=== PATIENT | male | born 1970 | race Caucasian/White ===

== ENCOUNTER → 2023-10-02 | Outpatient (CLI) | payer OTHER ==
[~2023-10-02] MED LIST: ALBU8.5H3 IH; CEPH500T PO; HYDR-4060 PO; TAMS-1 PO
[2023-10-02] MEDS: REGADENOSON 0.4 MG/5 ML PF SYG IVP SCH (13:19)
== END | disposition home or self-care (01) ==
LOC: RAH 09:01
PROVIDERS: ATTEND Internal Medicine Cardiovascular Disease
DX: R06.00 Dyspnea, unspecified (principal); R07.89 Other chest pain
CPT/HCPCS: 78452; 96374; 93017; J2785; A9500 ×2

== ENCOUNTER 2024-02-27 06:31 | Day surgery (SDC) | payer OTHER ==
[2024-02-25 10:49] LABS: BASOPHILS # (AUTO) 0.09 K/uL (0.00-0.20); BASOPHILS % (AUTO) 1.1 % (0.0-5.0); EOSINOPHILS # (AUTO) 0.42 K/uL (0.00-0.70); EOSINOPHILS % (AUTO) 4.9 % (0.0-8.0); HEMATOCRIT 51.1 % (42-54); IMMATURE GRANULOCYTE ABSOLUTE 0.04 K/uL (0-1); MEAN CORPUSCULAR HEMOGLOBIN 27.4 pg (27.0-33.0); MEAN CORPUSCULAR HGB CONC 32.1 g/dL (32.0-36.0); MEAN CORPUSCULAR VOLUME 85.3 fL (79-99); MONOCYTES # (AUTO) 0.9 K/uL (0.1-1.0); NEUTROPHILS # (AUTO) 5.1 K/uL (1.8-7.7); NEUTROPHILS % (AUTO) 59.5 % (40.0-77.0); PLATELET COUNT (AUTO) 190 K/uL (130-400); RED BLOOD CELL COUNT(AUTO) 5.99 MIL/uL (4.50-6.20); RED CELL DISTRIBUTION WIDTH 15.5 % (11.0-15.5); WHITE BLOOD COUNT (AUTO) 8.5 K/uL (4.8-10.8)
[2024-02-25 11:05] LABS: PROTHROMBIN TIME 10.8 SEC (9.6-11.6)
[2024-02-25 11:06] LABS: PARTIAL THROMBOPLASTIN TIME 32.5 SEC (26.3-35.5)
--- NOTE | 2024-02-25 11:10 | EKG ---
[facility] Test Date: 2024-02-25 Test Time: 11:33:21 Pat Name: CHARMAINE MONTANA Department: [facility] Room: [facility] Gender: M [employer] Jo[employer]: [id number] : 1970 Requested By: NIO ÁLVAREZ Order Number: [id number] Reading MD: Aury Johnson Measurements Intervals [place] Rate: 91 P: 77 MS: 160 QRS: 8 QRSD: 91 T: 65 QT: 370 QTc: 453 Interpretive Statements Sinus rhythm Ventricular premature complex Low voltage, extremity leads No previous ECG available for comparison Electronically Signed On 02-27-2024 17:34:30 FIELD SERVICE REP by Aury Johnson Please click the below link to view image of tracing.
[2024-02-25 11:12] LABS: CREATININE 1.2 mg/dL (0.5-1.3); POTASSIUM 4.6 mmol/L (3.5-5.1)
[2024-02-25 11:14] LABS: B-TYPE NATRIURETIC PEPTIDE < 5 pg/mL (0-100)
[2024-02-25 11:23] VITALS: BP 131/81; PULSE 91; RESP 18; TEMP 98
[2024-02-25 11:25] LABS: ADD UA MICROSCOPIC YES; APPEARANCE,URINE CLEAR (CLEAR); BILIRUBIN,URINE NEGATIVE (NEGATIVE); COLOR,URINE LIGHT-YELLOW (YELLOW); GLUCOSE, URINE (UA) >=1000 mg/dL (NEGATIVE); KETONES,URINE NEGATIVE (NEGATIVE); LEUKOCYTE ESTERASE ,URINE NEGATIVE Leu/uL (NEGATIVE); NITRATE,URINE NEGATIVE (NEGATIVE); OCCULT BLOOD,URINE NEGATIVE (NEGATIVE); PROTEIN,URINE NEGATIVE (NEGATIVE); UROBILINOGEN,URINE 0.2 mg/dL (0.2-1.0)
[2024-02-25 11:27] LABS: BACTERIA,URINE RARE /HPF (None Seen); MUCUS,URINE RARE LPF (None Seen); OTHER CASTS, URINE 1 /LPF (None Seen); RBC,URINE 0-1 /HPF (0-1); SQUAMOUS EPITHELIAL CELL,UR RARE /HPF (0-2)
--- NOTE | 2024-02-25 12:04 | HMCIMG ---
CHEST 1VW HISTORY: Preop COMPARISON: None FINDINGS: A frontal projection of the chest was obtained. Prominent interstitial markings are seen with possible superimposed infiltrates. The heart is borderline enlarged. Degenerative changes are seen. No evidence of aortic calcification is seen. IMPRESSION: 1. Prominent interstitial markings are seen with possible superimposed infiltrates.
--- NOTE | 2024-02-26 08:42 | NUR ---
REPORT REPORTED CXR TO DR ÁLVAREZ. OK TO PROCEED
[2024-02-27] VITALS (10 sets, daily range): BP systolic 107–137; BP diastolic 78–91; PULSE 83–95; RESP 12–18; TEMP 97.2–97.6
[~2024-02-27] VITALS: Ht 179.1 cm; Wt 122.2 kg
[~2024-02-27 06:31] MED LIST changes: +BUPR-561 PO; -CEPH500T PO; +CHOL2000 PO; +DOCU100T PO; +EMPA25TA PO; +FAMO40TA7 PO; +FLUT16H NS; +GABA300C PO; +GLIP10TA16 PO; -HYDR-4060 PO; +HYDR-4068 PO; +LOSA100T59 PO; +METF-446 PO; +PANT40TA54 PO; +PIOG30TA70 PO; +SEMA1PEN3 SQ; +SIMV80TA91 PO; +TIOT4MIS8 IH; +VITAMIN B 12 PO
[2024-02-27] MEDS: 0.9%NACL 1000ML 1,000 ML IV ONE (07:13)
[2024-02-27] MEDS ORDERED: HEParin-NS 1,000 UNIT/500 ML 1,000 ML IV ONE (09:09)
[2024-02-27] MEDS ORDERED: MIDAZOLAM HCL 1 MG/ML 2ML VIAL ONE (09:09)
[2024-02-27] MEDS ORDERED: LIDOCAINE HCL 400MG/20ML VIAL ONE (09:09)
[2024-02-27] MEDS ORDERED: HEParin 10,000 UNIT/10ML (1,000 UNIT/ML) VIAL ONE (09:09)
[2024-02-27] MEDS ORDERED: FENTanyl CITRate PF 50 MCG/1 ML 2ML VIAL ONE ×2 (09:09→10:44)
[2024-02-27] MEDS ORDERED: NITROGLYCERIN 50MG VIAL ONE (09:10)
[2024-02-27] MEDS ORDERED: IOHEXOL-350 50ML VIAL IV ONE ×2 (09:19→10:33)
[2024-02-27] MEDS ORDERED: IOHEXOL 350 MG/ML 100ML INFUS..BTL IV ONE (09:19)
[2024-02-27] MEDS ORDERED: HEParin-NS 1,000 UNIT/500 ML 500 ML IV ONE (10:41)
--- NOTE | 2024-02-27 11:36 | PRN ---
DATE OF PROCEDURE: 02/27/2024 PROCEDURE PERFORMED: RIGHT AND LEFT HEART CATHETERIZATION, LEFT VENTRICULOGRAM, LEFT AND RIGHT SELECTIVE CORONARY ANGIOGRAM, IFR OF MID RCA 70% STENOSIS, RIGHT COMMON FEMORAL ANGIOGRAM, PERCLOSE SUTURE CLOSURE OF THE RIGHT COMMON FEMORAL ARTERY, WITH CONSCIOUS SEDATION SPECIAL CLASS WELDER: INO ÁLVAREZ MD, [facility] INDICATION: PRE LUNG TRANSPLANT CARDIAC EVALUATION. FIXED ANTERIOR SEPTAL DEFECT ON LEXISCAN CARDIOLITE STRESS TEST 10/02/2023 PROCEDURE NOTE: After informed consent was obtained the patient was prepped and draped in the usual sterile fashion. A 6 Portuguese arterial sheath was inserted in the right femoral artery using a micropuncture technique with ultrasound guidance with a front wall, first pass puncture. This was performed after fluoroscopic identification of bony landmarks to facilitate a more accurate puncture of the right common femoral artery. The arterial sheath was aspirated and flushed. A 7 Portuguese venous sheath with hemostatic valve was inserted into the right common femoral vein using micropuncture technique with ultrasound guidance and was also aspirated and flushed. A 7 Portuguese S tipped [place]Jodi catheter was then advanced using balloon floatation to the right heart with pressure measurements and saturations in the right heart as well as simultaneous pressure measurement of LVEDP and wedge pressure. Cardiac output determinations were obtained. A 6 Portuguese pigtail catheter was then advanced over a J-tipped guidewire to the ascending aorta and was prolapsed into the left ventricle. The catheter was aspirated and flushed and pressure measurements were obtained. A left ventriculogram was then performed in a 30 [place] OCA projection. A pullback procedure was then performed, and this catheter was removed over a J-tipped guidewire. A 6F JL-4 was then advanced to the ascending aorta over a J-tipped guidewire, was aspirated and flushed, and was used for selective left coronary angiograms in multiple obliquities. A JR-4 was advanced in a similar fashion to the ascending aorta over a J-tipped guidewire and was used for selective right coronary angiograms in multiple obliquities with findings as outlined below. There was a borderline stenosis of 70% in the mid RCA and IFR measurements were performed in standard fashion with readings of 0.98, 0.97, and 0.97 without significant drift. A right common femoral angiogram was performed to assess suitability for Perclose suture closure and the Perclose device was deployed in standard fashion. Perclose suture closure was successful without bleeding or hematoma. The patient tolerated the procedure well and was returned to the holding area in stable condition. FINDINGS: RIGHT HEART CATHETERIZATION: RA pressure was 20 mm of mercury on the A-wave, 16 mm of mercury on the V-wave with a mean RA pressure of 17 mm of mercury RV pressure was 45/14 mm of mercury PA pressure was 45/29 mm of mercury with a mean PA pressure of 31 mm of mercury Pulmonary capillary wedge pressure was 25 mm of mercury on the A-wave, 24 mm of mercury on the V-wave, with a mean pulmonary capillary wedge pressure of 24 mm of mercury. Cardiac output was 6.9 with a cardiac index of 2.9 liters/minute per meter squared. Oximetry: RA sat was 71.1% RV sat was 64.4% with a repeat of 65.5% Left PA sat was 64.2% with a repeat of 67.1% Main PA sat was 68% SVC sat was 68.5% IVC sat 71.8% Central aortic saturation 92.6% LEFT HEART HEMODYNAMICS: The LVEDP was 22 mm of mercury with a repeat post LV g of 25 mm of mercury. There was no aortic valve gradient on pullback procedure. LEFT VENTRICULOGRAM: An LV-gram in a 30 degree [place] OCA projection demonstrated normal segmental wall motion and systolic function with an LVEF of 50-55% by estimate. CORONARY ANGIOGRAM: LEFT MAIN: The left main coronary artery was large and normal. There was no dampening or ventricularization of the pressure waveform. LEFT ANTERIOR DESCENDING: The left anterior descending and diagonal branches were normal. LEFT CIRCUMFLEX: The left circumflex was nondominant and normal as were the obtuse marginal branches. RAMUS INTERMEDIATE BRANCH: There was no ramus intermediate branch. RIGHT CORONARY ARTERY: The right coronary artery was dominant and had two tandem 40% stenoses in the proximal RCA. The mid RCA had a 70% stenosis with IFR of 0.98, 0.97, and 0.97. PDA and posterolateral ventricular branches were normal. IMPRESSION: Chronic hypoxemia with central aortic saturation of 93%. Sleep apnea with reported compliance with CPAP. Mild pulmonary hypertension with PA pressure 45/29 mm of mercury and mean PA pressure of 31 mm of mercury No oximetric step-up in the right heart (no evidence of intracardiac shunt). Normal cardiac output of 6.9 liters/minute and index of 2.9 liters/minute per meter squared Chronic diastolic CHF with pulmonary capillary wedge pressure of 24 mm of mercury and LVEDP of 22 mm of mercury Normal LV systolic function with LVEF of 50-55% by left ventriculogram. Single-vessel coronary artery disease with normal LAD and diagonal branches, normal left circumflex and obtuse marginal branches, and 70% mid mildly diffuse stenosis in the mid RCA with IFR of 0.97 to 0.98. RECOMMENDATION: Aggressive LDL reduction to less than 55 Heart healthy diet and lifestyle changes including weight loss and strict adherence to CPAP Cleared for lung transplantation. COMPLICATIONS OF PROCEDURE: None, the patient tolerated the procedure well and was returned to his room in stable condition. HEMOSTASIS: Perclose suture closure was successful without bleeding or hematoma. ESTIMATED BLOOD LOSS: Less than 10 mL CONTRAST TOTAL: 145 mL INO ÁLVAREZ MD Feb 27, 2024 11:36
[2024-02-27] MEDS: 0.9%NACL 1000ML 1,000 ML IV SCH (11:50)
[2024-02-27] MEDS ORDERED: GLUCAGON 1MG KIT 1 MG ML IM PRN (12:00)
[2024-02-27] MEDS ORDERED: DEXTROSE 50%-WATER 50 ML DISP.SYRIN IV PRN (12:00)
[2024-02-27] MEDS ORDERED: INSULIN humuLIN R 100 UNIT/ML 3ML SQ SCH (16:30)
== END 2024-02-27 15:03 | disposition home or self-care (01) ==
LOC: DAH 06:31 → EDSTATUS 10:00 → DAH 15:03
PROVIDERS: ATTEND Internal Medicine Cardiovascular Disease
DX: R94.39 Abnormal result of other cardiovascular function study (principal); I25.10 Atherosclerotic heart disease of native coronary artery without angina pectoris; I27.20 Pulmonary hypertension, unspecified; R09.02 Hypoxemia; I11.0 Hypertensive heart disease with heart failure; I50.32 Chronic diastolic (congestive) heart failure; E78.2 Mixed hyperlipidemia; J44.9 Chronic obstructive pulmonary disease, unspecified; E11.9 Type 2 diabetes mellitus without complications; I49.3 Ventricular premature depolarization; R06.00 Dyspnea, unspecified; G47.33 Obstructive sleep apnea (adult) (pediatric); E66.9 Obesity, unspecified; Z87.891 Personal history of nicotine dependence; E86.0 Dehydration; Z98.890 Other specified postprocedural states; Z90.89 Acquired absence of other organs; Z99.89 Dependence on other enabling machines and devices; Z90.49 Acquired absence of other specified parts of digestive tract; Z68.39 Body mass index [BMI] 39.0-39.9, adult; Z79.84 Long term (current) use of oral hypoglycemic drugs; Z79.82 Long term (current) use of aspirin; Z79.01 Long term (current) use of anticoagulants; Z79.899 Other long term (current) drug therapy
CPT/HCPCS: 80048; 83880; 85025; 85610; 85730; 81001; 36415; 71045; 93005; 93460; 93571; 82948 ×2; 96360; 96361; C1887; C1894 ×3; C1760; C1769; J3010 ×2; J3490 ×2; J7030; J2250; J1644 ×2; Q9967 ×3; A4215; A4222; A4221; A4663; A4216; A4606; Q9965; A4223 ×3; 99156; 99157

== ENCOUNTER → 2025-03-18 | Outpatient (CLI) | payer OTHER ==
[2025-03-18 09:45] LABS: IMMATURE GRANULOCYTE ABSOLUTE 0.05 K/uL (0-1); NUCLEATED RED BLOOD CELLS 0.0 % (0.0-0.19); PLATELET COUNT (AUTO) 198 K/uL (130-400); RED BLOOD CELL COUNT(AUTO) 5.95 MIL/uL (4.50-6.20); RED CELL DISTRIBUTION WIDTH 16.2 % (11.0-15.5); WHITE BLOOD COUNT (AUTO) 8.2 K/uL (4.8-10.8)
[2025-03-18 10:00] LABS: ASPARTATE AMINOTRANSFERASE 19.0 U/L (10-37); CREATININE 1.0 mg/dL (0.5-1.3); GLOMERULAR FILTR. RATE CALC 88.0 mL/min (>90); GLUCOSE,RANDOM 143.0 mg/dL (70-105); SODIUM SERUM 136.0 mmol/L (136-145); TOTAL PROTEIN, SERUM 7.8 g/dL (6.0-8.3); UREA NITROGEN, BLOOD 12.0 mg/dL (7-18)
== END | disposition home or self-care (01) ==
LOC: LAB 08:50
PROVIDERS: ATTEND Internal Medicine Gastroenterology
DX: D12.0 Benign neoplasm of cecum (principal)
CPT/HCPCS: 36415; 80053; 82378; 85025

== ENCOUNTER → 2025-03-24 | Outpatient (CLI) | payer OTHER ==
[~2025-03-24] MED LIST changes: -BUPR-561 PO; +BUPR-721 PO; +IOHEXOL-350 75 ML VIAL IV ONE
--- NOTE | 2025-03-24 21:07 | HMCIMG ---
EXAM: CT SCAN OF THE CHEST, ABDOMEN, AND PELVIS WITH AND WITHOUT CONTRAST Clinical statement: Benign neoplasm of the cecum (history); CT chest/abdomen/pelvis for staging/evaluation. STUDY PROTOCOL: Multidetector CT of the chest, abdomen, and pelvis was performed before and after intravenous contrast administration. Thin axial images were obtained with coronal and sagittal reformations. Oral contrast was administered. Dose reduction techniques were applied in accordance with ALARA principles, including automatic exposure control and size-based tube current and voltage modulation with iterative reconstruction. RADIATION DOSE: CTDIvol 48.20 mGy; DLP 3351.10 mGycm. CONTRAST: Standard dose of intravenous contrast administered; oral contrast also given. COMPARISON: None provided. FINDINGS: CHEST: Soft tissues: No significant abnormality in the visualized chest wall and lower neck soft tissues. Lungs and large airways: Central tracheobronchial tree is patent. No consolidation or focal infiltrate. Multiple scattered calcified pulmonary nodules are present in both lungs, the largest measuring approximately 8 mm in the right upper lobe (series 3, image 30/66), compatible with healed granulomatous disease. No suspicious noncalcified pulmonary nodule is identified. Pleura: No pleural effusion or pneumothorax. No pleural-based mass. Heart and pericardium: Heart size is within normal limits. No pericardial effusion. Aorta: Thoracic aorta is normal in course and caliber without aneurysm or dissection. Pulmonary arteries: No intraluminal filling defect is identified to suggest acute pulmonary embolism. Lymph nodes: No enlarged mediastinal, hilar, or axillary lymph nodes by size criteria. Mediastinum and edwige: A few calcified bilateral perihilar and subcarinal lymph nodes are present, in keeping with prior granulomatous disease. No mediastinal mass. Chest wall and lower neck: No chest wall mass or suspicious lesion. Bones/joints: No acute fracture or destructive osseous lesion in the visualized thoracic cage. ABDOMEN AND PELVIS: LIVER: Normal size and morphology with homogeneous enhancement. No focal hepatic lesion or calcification is seen. No intrahepatic or extrahepatic biliary ductal dilatation. Portal vein, hepatic veins, and inferior vena cava are normal in caliber and patent. Mild diffuse decreased hepatic attenuation is compatible with mild fatty liver. GALL BLADDER: Normal gallbladder wall thickness and contour. No gallbladder distention, pericholecystic fluid, or calcified gallstones. Surrounding fat planes are preserved. PANCREAS: Normal size and contour with homogeneous enhancement. No pancreatic ductal dilatation, peripancreatic fat stranding, or fluid collection. SPLEEN: Normal in size and homogeneous in enhancement without focal lesion. KIDNEYS: Both kidneys are normal in size, shape, and position with symmetric enhancement. No renal mass, nephrolithiasis, or hydronephrosis. Visualized ureters are normal in caliber without filling defect. GIT /T/ PERITONEAL CAVITY: Small sliding hiatal hernia. Stomach is distended but normal in wall thickness and enhancement. Duodenum, jejunum, and ileal loops are normal in caliber and wall thickness without evidence of obstruction. Rectum and colon are well distended with fecal material but without mural thickening or pericolonic inflammatory change. The cecal region and ileocecal junction appear normal without focal mural thickening or discrete cecal mass to suggest recurrent neoplasm. Appendix is visualized and normal in caliber without periappendiceal stranding. No free intraperitoneal air, free fluid, or mesenteric edema. LYMPHNODES: No pathologic abdominal or pelvic lymphadenopathy. RETROPERITONEUM: Adrenal glands are normal in size and morphology without nodule. Abdominal aorta and inferior vena cava are normal in course and caliber without aneurysm or dissection. PELVIS: Urinary bladder demonstrates normal distention and wall thickness without intraluminal filling defect. Prostate appears normal in size for age without discrete mass. No pelvic free fluid. MUSCULOSKELETAL: L4L5 and L5S1 spondylolysis is noted. No acute osseous abnormality or destructive lesion in the visualized spine or pelvis. OTHER: A small fat-containing umbilical hernia is present without bowel involvement or signs of incarceration. Extra-abdominal and paraspinal soft tissues are otherwise unremarkable. IMPRESSION: * No CT evidence of an active cecal mass, regional lymphadenopathy, or distant intra-abdominal or intrathoracic metastasis in this patient with a history of benign cecal neoplasm. No acute intrathoracic or intra-abdominal pathology identified. * Multiple scattered calcified pulmonary nodules and calcified mediastinal/hilar lymph nodes, most consistent with healed granulomatous disease; no suspicious noncalcified pulmonary nodules. * Mild hepatic steatosis without focal hepatic lesion. 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 * Small fat-containing umbilical hernia without evidence of associated bowel obstruction or strangulation. /[place]
== END | disposition home or self-care (01) ==
LOC: RAH 07:26
PROVIDERS: ATTEND Internal Medicine Gastroenterology
DX: D12.0 Benign neoplasm of cecum (principal); K76.0 Fatty (change of) liver, not elsewhere classified; R91.8 Other nonspecific abnormal finding of lung field; K42.9 Umbilical hernia without obstruction or gangrene; M47.817 Spondylosis without myelopathy or radiculopathy, lumbosacral region
CPT/HCPCS: 71270; 74178; Q9967